=== PATIENT | male | born 1965 | race Caucasian/White ===

== ENCOUNTER 2023-06-22 03:53 | Inpatient (IN) | payer OTHER ==
[~2023-06-22] VITALS: Ht 182.9 cm; Wt 99.3 kg
[2023-06-22] MEDS ORDERED: AMLODIPINE BESY10 MG PO (04:32)
[2023-06-22] MEDS ORDERED: OLMESARTAN MEDO20 MG PO (04:32)
[2023-06-22 07:20] LABS: BASOPHILS PERCENT AUTO 1 % (0-2); EOSINOPHILS ABSOLUTE AUTO 0.25 K/mm3 (0.00-0.68); EOSINOPHILS PERCENT AUTO 2 % (0-6); Hemoglobin 18.4 g/dL (13.5-17.5); IMMATURE GRAN ABSOLUTE AUTO 0.08 K/mm3 (0.00-0.10); IMMATURE GRAN PERCENT AUTO 1 % (0-1); LYMPHOCYTES ABSOLUTE AUTO 1.85 K/mm3 (0.84-5.20); LYMPHOCYTES PERCENT AUTO 16 % (21-46); MONOCYTES ABSOLUTE AUTO 0.92 K/mm3 (0.16-1.47); MONOCYTES PERCENT AUTO 8 % (4-13); Mean Corpuscular HGB 30.6 pg (26.0-34.0); Mean Corpuscular HGB Conc 34.7 g/dL (31.5-36.5); Mean Corpuscular Volume 88 fL (80-100); Mean Platelet Volume 8.5 fL (9.1-12.4); NEUTROPHILS PERCENT AUTO 72 % (41-73); Platelet Count 200 K/mm3 (150-400); RDW Coefficient Variation 14.9 % (11.7-14.2); RDW Standard Deviation 46.4 fL (35.1-46.3); Red Blood Cell Count 6.02 M/mm3 (4.30-5.90)
[2023-06-22] MEDS ORDERED: NS 1,000 ML IV SCH (07:30)
[2023-06-22 07:40] LABS: Albumin, Blood 3.5 g/dL (3.4-5.0); Albumin/Globulin Ratio 0.9 (0.8-1.8); Bilirubin, Total 0.6 mg/dL (0.1-1.0); Bun/Creatinine Ratio 12.6 (12.0-20.0); Calcium, Blood 9.4 mg/dL (8.5-10.1); Creatinine, Blood 0.95 mg/dL (0.60-1.20); Globulin, Blood 3.7 g/dL (2.2-4.0); Magnesium, Blood 2.1 mg/dL (1.6-2.4); Potassium, Blood 4.3 mmol/L (3.5-5.5); Total Protein, Blood 7.2 g/dL (6.4-8.2)
[2023-06-22] MEDS ORDERED: Aspirin 325 MG Tab PO ONE (08:15)
[2023-06-22] MEDS ORDERED: Mag Hydrox/AL Hydrox/Simeth 30 ML UDC PO PRN (09:15)
[2023-06-22] MEDS ORDERED: Atorvastatin 40 MG Tab PO ONE (09:15)
[2023-06-22] MEDS ORDERED: Famotidine 20 MG Tab PO SCH (10:00)
[2023-06-22] MEDS ORDERED: Metoprolol Succinate 25 MG TABCR PO ONE (10:00)
--- NOTE | 2023-06-22 11:02 | NUR ---
PT ARRIVED TO ROOM AOX4 AND COOPERATIVE OF CARE. PT INDEPENDENT AND ABLE TO MAKE ALL NEEDS KNOWN. ORIENTED TO ROOM AND CALL LIGHT. NO DISTRESS NOTED. WILL CONTINUE TO MONITOR.
[2023-06-22 11:13] VITALS: BP 129/92
[2023-06-22 15:11] VITALS: BP 143/90
--- NOTE | 2023-06-22 16:36 | NUR ---
PT HAS BEEN DOING WELL AOX4 AND COOPERATIVE OF CARE. PT DENIES CHEST PAIN, BUT DID REPORT EPISODE AT 1234 OF HIS HEART FEELING LIKE IT WAS BEATING IRREGULARLY. CALLED TELE AND THEY REPORTED A RUN OF BIGEMINY RATE OF 83. PT IS INDEPENDENT IN ROOM AND CALL LIGHT IN REACH. WILL CONTINUE TO MONITOR.
[2023-06-22] MEDS ORDERED: Mag Hydrox/Al Hydrox/Simeth 18 ML,Lidocaine 2% Viscous Soln 9 ML,Atropine/Scopalam/Hyos... PO ONE (19:10)
[2023-06-22 19:43] VITALS: BP 140/88
[2023-06-23] VITALS (8 sets, daily range): BP systolic 125–158; BP diastolic 90–98
[2023-06-23] MEDS ORDERED: Aspirin 81 MG Chew PO SCH (09:00)
[2023-06-23] MEDS ORDERED: Regadenoson 0.4 MG/5 ML SYRINGE ONE (12:03)
[2023-06-23] MEDS ORDERED: Metoprolol Succinate 25 MG TABCR PO SCH (14:00)
--- NOTE | 2023-06-23 14:02 | NUR ---
1330- THIS RN NOTIFIED DR. HWANG OF TELE EVENT AT 1305 OF SVT RUN FOR 10-12 SECONDS. PT WAS SYMPTOMATIC-PT WAS SWEATY, CLAMMY, FLUSHED, FELT "FLUTTERING" IN HIS CHEST, AND HAD HIS "BREATH TAKEN AWAY." RN INFORMED JAIDEN OF TQ=022/96 AND HR NOW=74. MD HWANG VERBALIZED HE WOULD ORDER BETA CATRACHITO FOR PT. PT FURTHER EXPLAINED THAT THIS EPISODE STARTED MINIMALLY WHILE MEDS WERE BEING GIVEN DURING THE STRESS TEST.
--- NOTE | 2023-06-23 18:01 | NUR ---
1730- REPORT GIVEN TO STEPHON [facility]. PT TRANSFERRED TO PCU 2.
--- NOTE | 2023-06-23 18:06 | NUR ---
PT TRANSFER SUMMARY: PT TRANSFERRED FROM RM 339 TO [facility]. PT A/Ox4. GAIT STEADY, DENIES DIZZINESS N/V. PLACED PT ON TELE. VS: TEMP 99.0, HR 86, B/P: 158/95 ON R ARM, MAP 115, AND 96% ON RA. PT DENIES CHEST PN/PRESSURE AT THIS TIME. HE STATES HE HAD INTERMITTENT NECK PN RADIATING TO BUE, NONE NOTED DURING ASSESSMENT. DR. BRASWELL SPOKE W PT AND FAMILY - PLS SEE DR. BRASWELL's CHART FOR NOTES. PT HAS NO ACUTE NEEDS AT THIS TIME. CALL LIGHT WITHIN REACH. PT IS ABLE TO MAKE NEEDS KNOWN. WILL REPORT TO ONCOMING SHIFT RN.
--- NOTE | 2023-06-23 18:32 | NUR ---
PT TRANSFERED FROM RM 339 TO [facility] AT 1735. PT IS A&OX4, VSS, DENIES CHEST PAIN OR PRESSURE. DR WILLARD IN TO CONSULT, PLANS FOR ANGIOGRAM IN THE AM. PT WILL BE NPO AFTER MIDNIGHT. PT ORIENTED TO ROOM, CALL LIGHT AND UNIT ROUTINES. FAMILY AT BEDSIDE. PT IS ABLE TO MAKE NEEDS KNOWN AND USE CALL LIGHT APPROPRIATELY. SR ON TELEMETRY. WILL CONTINUE TO MONITOR AND GIVE REPORT TO NOC SHIFT RN. CALL LIGHT IN REACH.
[2023-06-23] MEDS ORDERED: Clopidogrel Bisulfate 300 MG Cap PO STA (18:34)
[2023-06-23] MEDS ORDERED: AmLODIPine Besylate 5 MG Tab PO SCH (21:00)
--- NOTE | 2023-06-23 22:18 | NUR ---
ACKNOWLEDGED ORDER FOR NPO AT MIDNIGHT FOR TEST IN THE AM. PT AWARE. CALL LIGHT IN REACH
[2023-06-24] VITALS (13 sets, daily range): BP systolic 114–153; BP diastolic 83–106
--- NOTE | 2023-06-24 03:08 | NUR ---
PUBLIC RELATIONS PROFESSIONAL SUMMARY VSS. MED TELE SINUS RHYTHM WITH A FEW BEATS OF OCCASIONAL BIGEMINEY. EACH TIME TELE NOTIFIED NURSE OF BIGEMINEY, PT VOICED FEELINGS OF "FLUTTER" AND FEELING "FLUSHED". OTHERWISE ASYMPTOMATIC. DENIED CHEST PAIN AND DISCOMFORT. HAS BEEN NPO SINCE MIDNIGHT FOR TESTS SCHEDULED LATER TODAY. OTHERWISE HAS BEEN RESTING QUIETLY WITH FEW INTERRUPTIONS. UP AD AIDE. CALL LIGHT IN REACH, RAILS UP X 2 AND BED IN LOW POSITION FOR SAFETY. WILL CONTINUE TO MONITOR.
[2023-06-24] MEDS ORDERED: Clopidogrel Bisulfate 75 MG Tab PO SCH (09:00)
[2023-06-24] MEDS ORDERED: Atorvastatin 40 MG Tab PO SCH (09:00)
[2023-06-24] MEDS ORDERED: NS 250 ML IV ONE (09:36)
[2023-06-24] MEDS ORDERED: Heparin Sodium 1000 Units/ML 10ML MDV ONE (09:36)
[2023-06-24] MEDS ORDERED: NS 2,000 ML IV ONE (09:36)
[2023-06-24] MEDS ORDERED: Nitroglycerin 2 MG/20 ML BTL ONE (09:37)
[2023-06-24] MEDS ORDERED: Verapamil HCL 2.5 MG/ML 2ML Injection ONE (09:37)
[2023-06-24] MEDS ORDERED: Midazolam HCl 1MG / ML 2ML Vial ONE (09:38)
[2023-06-24] MEDS ORDERED: FentaNYL Citrate 50 MCG/ML 2 ML Injection ONE (09:39)
[2023-06-24] MEDS ORDERED: Tirofiban HCL Monohydrate 3.75 MG/15 ML Vial ONE ×2 (10:38→10:56)
[2023-06-24] MEDS ORDERED: Nitroglycerin 0.4 MG SUBL ONE (10:49)
[2023-06-24] MEDS ORDERED: Clopidogrel Bisulfate 300 MG Cap ONE (10:59)
[2023-06-24] MEDS ORDERED: FentaNYL Citrate 50 MCG/ML 2 ML Injection IV PRN (11:15)
[2023-06-24] MEDS ORDERED: NS 1,000 ML IV SCH (12:00)
--- NOTE | 2023-06-24 18:12 | NUR ---
SHIFT SUMMARY: ASSUMED PT CARE W PRIMARY RN AT 0700. PT A/Ox4. VSS. NO ACUTE CHANGES T/O THE DAY. PT WAS TAKEN TO BEEF TRIMMER AT 0955, RETURNED AT 1117. PT HAS R RADIAL TR BAND. OLD BLEEDING SEEN ON ASSESSMENT, NO REDNESS, SWELLING, PT DENIES PN AT THE SITE. VITALS AND TR BAND ASSESSED EVERY 15 MIN FOR THE 1ST HOUR. EVERY HOUR AFTER W/ NO ACUTE CHANGES. PT VSS. PT DENIES CHEST PN/PRESSURE. NO ACUTE CHANGES T/O THE DAY. CALL LIGHT W/IN REACH. PT INDEPENDENT IN ROOM, ABLE TO MAKE NEEDS KNOWN. WILL REPORT TO ONCOMING SHIFT RN.
[2023-06-25 03:06] VITALS: BP 119/76
--- NOTE | 2023-06-25 04:40 | NUR ---
SHIFT SUMMARY: PT A/Ox4 AND PLEASANT W/CARE T/O SHIFT. RT RADIAL TR BAND RECOVERED ON AM SHIFT, OLD BLOOD NOTED, WELL SMALL BRUISE, ARM BOARD IN PLACE. PT DENIES PAIN TO THE SITE. TELE: SR 70s-80s, BP STABLE, PT DENIES CP, PRESSURE, OR SOB. PT REPORTS SOME DIZZINESS W/AMBULATION TO THE BATHROOM, NOTIFIED THAT HE WILL NEED TO USE HIS CALL LIGHT FOR ASSISTANCE NEXT TIME. SPO2 >93% ON RA. PT ABLE TO MAKE NEEDS KNOWN. CALL LIGHT IN REACH AND BED IN LOWEST POSITION. WILL REPORT TO ONCOMING RN.
[2023-06-25 07:30] VITALS: BP 136/88
[2023-06-25] MEDS ORDERED: Clopidogrel Bisulfate 75 MG Tab PO SCH (09:00)
[2023-06-25] MEDS ORDERED: Aspirin 81 MG Chew PO SCH (09:00)
[2023-06-25 09:30] VITALS: BP 145/90
[2023-06-25] MEDS ORDERED: ASPI81CH PO (10:25)
[2023-06-25] MEDS ORDERED: ATOR80 PO (10:26)
[2023-06-25] MEDS ORDERED: FAMO20 PO (10:26)
[2023-06-25] MEDS ORDERED: METO25ER PO (10:27)
[2023-06-25 10:51] VITALS: BP 144/86
--- NOTE | 2023-06-25 13:05 | NUR ---
DISCHARGE NOTE Pt alert and oriented to person, place, situation, and president. On tele, sinus rhythm in the 70's. Denies chest pain/pressure, numb/tingling, or pain. VSS. O2 in the 90's on RA. Right radial sight unchanged with minimal blood. Pt had bleeding with removal of IV, pressure applied to site until bleeding stopped. Pt walked out with at 1118.
--- NOTE | 2023-06-25 16:23 | NUR ---
DISCHARGE SUMMARY PT EDUCATED ON DISCHARGE INSTRUCTIONS, FOLLOW UP APPOINTMENT, ACTIVITY RESTRICTIONS AND MEDICATIONS. PRESCRIPTIONS FAXED TO [facility], PER PATIENT REQUEST. I HAVE REVEIWED GARRET'S DOCUMENTATION AND AM IN AGREEMENT.
== END 2023-06-25 11:19 | disposition home or self-care (01) | DRG 322 ==
LOC: ER 03:53 → MEDS 03:54 → PCU 06-23 17:35
PROVIDERS: Emergency Medicine; ADMIT Internal Medicine
PROC: 027034Z Dilation of Coronary Artery, One Artery with Drug-eluting Intraluminal Device, Percutaneous Approach (ICD-10-PCS; principal; 2023-06-24)
PROC: B2111ZZ Fluoroscopy of Multiple Coronary Arteries using Low Osmolar Contrast (ICD-10-PCS; 2023-06-24)
DX: I21.4 Non-ST elevation (NSTEMI) myocardial infarction (principal); F10.20 Alcohol dependence, uncomplicated; K21.9 Gastro-esophageal reflux disease without esophagitis; G47.33 Obstructive sleep apnea (adult) (pediatric); E78.5 Hyperlipidemia, unspecified; I12.9 Hypertensive chronic kidney disease with stage 1 through stage 4 chronic kidney disease, or unspecified chronic kidney disease; N18.9 Chronic kidney disease, unspecified; I25.10 Atherosclerotic heart disease of native coronary artery without angina pectoris; Z79.82 Long term (current) use of aspirin
CPT/HCPCS: 36415; 76937; 78452; 80053; 83735; 83880; 84484; 85025; 85347; 93005; 93010; 93017; 93306; 93454; 96360; 96361; 99152; 99153; 99285-25; A9270; A9500; C1725; C1769; C1874; C1887; C1894; C9600; G0378; J1644; J2250; J2785; J3010; J3246; J7030; J7050; Q9967

== ENCOUNTER → 2024-06-24 | Outpatient (CLI) | payer OTHER ==
[~2024-06-24] MED LIST: AMLODIPINE BESY10 MG PO; ASPI81CH PO; ATOR80 PO; FAMO20 PO; METO25ER PO; OLMESARTAN MEDO20 MG PO
== END ==
LOC: LAB 16:22 → LAB SHORT 16:22
DX: N39.0 Urinary tract infection, site not specified (principal)
CPT/HCPCS: 87086